=== PATIENT | female | born 1940 | race Two or more races ===

== ENCOUNTER 2024-05-19 07:01 | Inpatient (IN) | payer OTHER ==
[~2024-05-19] VITALS: Ht 152.4 cm; Wt 41.6 kg
--- NOTE | 2024-05-19 07:09 | ED.PDOC ---
Altered Mental Status HPI Comments 88 year old female DAMION presents to the ED with chief complaint of ALOC. EMS reports patient was in back seat of family car getting ready to leave for another family's home when she had decided to lay down, becoming unresponsive for about 20 minutes according to family. EMS relays patient has been A/O x1, but is able to answer their questions when asked. EMS states patient has history of Alzheimer's and Dementia along with a BG of 98 and all vitals stable. Patient unable to answer questions at this time and does not follow instructions. Time Seen by MD: 07:06 Reviewed Notes: Nurses Notes, Administrative Fellow Notes, Medications, Allergies Allergies: Coded Allergies: NO KNOWN ALLERGIES (Unverified , 05/19/24) Home Meds Reported Medications Rosuvastatin Calcium (Rosuvastatin Calcium) 10 Mg Tab, 1 TAB PO HS 05/19/24 Losartan Potassium (Losartan Potassium) 50 Mg Tab, 1 TAB PO BID 05/19/24 Amlodipine Besylate (Amlodipine Besylate) 5 Mg Tab, 1 TAB PO DAILY 05/19/24 Metoprolol Tartrate (Lopressor) 25 Mg Tb, 1 TAB PO DAILY 05/19/24 Alendronate Sodium (Alendronate Sodium) 70 Mg Tab, 1 TAB PO QWEEKLY 05/19/24 Buspirone Hcl (Buspirone Hcl) 5 Mg Tab, 1 TAB PO DAILY 05/19/24 Information Source: Emergency Med Personnel Mode of Arrival: EMS Severity: Moderate, Unresponsive Timing: Hours Duration: Since onset Prehospital treatment: None Quality: Change in Behavior, Confusion Recent: None History of: Dementia Past Medical History PAST MEDICAL HISTORY: Alzheimer, Dementia, High Lipids, HTN Surgical History: Unknown PLACEMENT COORDINATOR History: Unknown Family History Family History: Reviewed,noncontributory to illness Social History Smoker: Non-Smoker Alcohol: Denies ETOH Use Drugs: Denies Drug Use Lives In: Home Constitutional: denies: chills, diaphoresis, fatigue, fever, malaise, sweats, weakness, others EENTM: denies: blurred vision, double vision, ear bleeding, ear discharge, ear drainage, ear pain, ear ringing, eye pain, eye redness, hearing loss, mouth pain, mouth swelling, nasal discharge, nose bleeding, nose congestion, nose pain, photophobia, tearing, throat pain, throat swelling, voice changes, others Respiratory: denies: cough, hemoptysis, orthopnea, SOB at rest, shortness of breath, SOB with excertion, stridor, wheezing, others Cardiovascular: denies: chest pain, dizzy spells, diaphoresis, Dyspnea on exertion, edema, irregular heart beat, left arm pain, lightheadedness, palpitations, PND, syncope, others Gastrointestinal: denies: abdomen distended, abdominal pain, blood streaked bowels, constipated, diarrhea, dysphagia, difficulty swallowing, hematemesis, melena, nausea, poor appetite, poor fluid intake, rectal bleeding, rectal pain, vomiting, others Genitourinary: denies: abnormal vagina bleeding, burning, dyspareunia, dysuria, flank pain, frequency, hematuria, incontinence, pain, , vagina discharge, urgency, others Neurological: denies: dizziness, fainting, headache, left sided numbness, left sided weakness, numbness, paresthesia, pre-existing deficit, right sided numbness, right sided weakness, seizure, speech problems, tingling, tremors, weakness, others Musculoskeletal: denies: back pain, gout, joint pain, joint swelling, muscle pain, muscle stiffness, neck pain, others Integumetry: denies: bruises, change in color, change in hair/nails, dryness, laceration, lesions, lumps, rash, wounds, others Allergic/Immunocompromised: denies: Difficulty Healing, Frequent Infections, Hives, Itching, others Hematologic/Lymphatic: denies: anemia, blood clots, easy bleeding, easy bruising, swollen glands, others Endocrine: denies: excessive hunger, excessive sweating, excessive thirst, excessive urination, flushing, intolerance to cold, intolerance to heat, unexplained weight gain, unexplained weight loss, others Psychiatric: denies: anxiety, bipolar disorder, depression, hopeless, panic disorder, schizophrenia, sleepless, suicidal, others Unable to Obtain due to: Altered Mental Status, Dementia All Other Systems: Reviewed and Negative Physical Exam General Appearance: Moderate Distress, Normal HEENT: Normal ENT Inspection, PERRL/EOMI Neck: Full Range of Motion, Non-Tender, Normal, Normal Inspection Respiratory: Chest Non-Tender, Lungs Clear, No Accessory Muscle Use, No Respiratory Distress, Normal Breath Sounds Cardiovascular: No Edema, No JVD, No Murmur, No Gallop, Normal Peripheral Pulses, Regular Rate/Rhythm Breast Exam: Deferred Gastrointestinal: No Organomegaly, Non Tender, No Pulsatile Mass, Normal Bowel Sounds, Soft Genitalia: Deferred Pelvic: Deferred Rectal: Deferred Extremities: No calf tenderness, Normal capillary refill, Normal inspection, Normal range of motion, Non-tender, No pedal edema Musculoskeletal : Apperance: Normal Neurologic: Disoriented, No Motor Deficits, No Sensory Deficits Cerebellar Function: NOT DONE Reflexes: NOT DONE Skin: Dry, Normal Color, Warm Peripheral Pulses: 3+ Radial (R), 3+ Radial (L) Lymphatic: No Adenopathy Was a procedure done? Was a procedure done?: No Differential Diagnosis (ALOC) Differential Diagnosis: Dehydration, Hypoglycemia, Sepsis X-Ray, Labs, Meds, VS Vital Signs Date Time Temp Pulse Resp B/P (MAP) Pulse Ox O2 Delivery O2 Flow Rate FiO2 05/19/24 09:00 98.4 83 18 128/86 (100) 96 98.4 05/19/24 09:00 83 18 96 Room Air* 0 21 05/19/24 07:15 98.4 68 18 146/70 (95) 99 Lab Test 05/19/24 08:18 Range/Units White Blood Count 5.6 4.4-10.8 10^3/uL Red Blood Count 4.01 4.0-5.20 10^6/uL Hemoglobin 13.6 12.2-16.2 g/dL Hematocrit 39.9 36.0-46.0 % Mean Corpuscular Volume 99.7 80.0-100.0 fL Mean Corpuscular Hemoglobin 34.0 H 28.0-32.0 pg Mean Corpuscular Hemoglobin Concent 34.0 32.0-36.0 g/dL Red Cell Distribution Width 13.5 11.8-14.3 % Platelet Count 243 140-450 10^3/uL Mean Platelet Volume 7.6 6.9-10.8 fL Neutrophils (%) (Auto) 58.1 37.0-80.0 % Lymphocytes (%) (Auto) 31.6 10.0-50.0 % Monocytes (%) (Auto) 8.2 0.0-12.0 % Eosinophils (%) (Auto) 1.1 0.0-7.0 % Basophils (%) (Auto) 1.0 0.0-2.0 % Neutrophils # (Auto) 3.3 1.6-8.6 10 ^3/uL Lymphocytes # (Auto) 1.8 0.4-5.4 10 ^3/uL Monocytes # (Auto) 0.5 0-1.3 10 ^3/uL Eosinophils # (Auto) 0.1 0-0.8 10 ^3/uL Basophils # (Auto) 0.1 0-0.2 10 ^3/uL Nucleated Red Blood Cells 0.3 % Sodium Level 140 136-145 mmol/L Potassium Level 3.8 3.5-5.1 mmol/L Chloride Level 108 H 98-107 mmol/L Carbon Dioxide Level 21 20-31 mmol/L Anion Gap 11 5-15 Blood Urea Nitrogen 11 9-23 mg/dL Creatinine 0.72 0.550-1.02 mg/dL Glomerular Filtration Rate Calc 83 >90 mL/min BUN/Creatinine Ratio 15.3 10.0-20.0 Serum Glucose 129 H 74-106 mg/dL Calcium Level 8.8 8.7-10.4 mg/dL Troponin I High Sensitivity 5 </=34 ng/L Current Medications Medications (Trade) Dose Ordered Sig/Jenn Route Start Time Stop Time Status Last Admin Lorazepam (Ativan Inj) 1 mg ONCE ONCE IV 05/19/24 10:00 05/19/24 10:01 DC 05/19/24 10:38 Patient disoriented. History of dementia. Vitals stable. She is moving her extremities. Unable to cooperate. Possible mild stroke. CT of the head reviewed does not show any acute changes. Possibly will need MRI. Explained to the family that she will need further workup. Continue cardiac monitoring. [facility] approved inpatient admission [id number]. CT Head: FINDINGS: There is no evidence of acute intracranial hemorrhage, extra-axial collection, mass effect, midline shift, herniation or hydrocephalus. There are periventricular and subcortical hypodensities, nonspecific, but likely reflecting sequelae of chronic microvascular ischemic changes. The ventricles, sulci and cisterns are age appropriate. The cordero-white differentiation is intact. The visualized paranasal sinuses and mastoid air cells are clear. No depressed calvarial fracture. 2.0 cm circumscribed lytic lesion the occipital bone. The surrounding soft tissues are unremarkable. IMPRESSION: 1. No evidence of acute intracranial abnormality. Time of 1ST Reevaluation: 08:06 Reevaluation 1ST: Unchanged Patient Education/Counseling: Diagnosis, Treatment Family Education/Counseling: No Family Present Departure 1 Departure Time of Disposition: 07:11 Impression: Primary Impression: Metabolic encephalopathy Additional Impression: TIA (transient ischemic attack) Disposition: 09 ADMITTED INPATIENT Admit to: Med Surg Condition: Guarded Critical Care Note Critical Care Time?: Yes (45 min-critical care time only) Stability Stability form required: No Heart Score Heart Score: Heart Score Response (Comments) Value History Slightly Suspicious 0 EKG Normal 0 Age >65 2 Risk Factors >3 or Hx ASHD 2 Troponin Normal limit 0 Total 4 I personally scribed for SANDOVAL ARCINIEGA MD ([email or web address]) on 05/19/24 at 07:09. Electronically submitted by Jefe Escalante ([email or web address]). I personally scribed for SANDOVAL ARCINIEGA MD ([email or web address]) on 05/19/24 at 08:13. Electronically submitted by Jefe Escalante ([email or web address]). SANDOVAL ARCINIEGA MD May 19, 2024 07:09
--- NOTE | 2024-05-19 08:10 | DVH ---
EXAM: CT HEAD WITHOUT CONTRAST INDICATION: TIA TECHNIQUE: CT of the head without intravenous contrast. Coronal and sagittal reformatted images are submitted. Radiation Dose : 1. Head: CT Dose: CTDI volume is 53.24 mGy. Dose-length product is 853.61 mGy*cm The dose indicators for CT are the volume Computed Tomography (CT) Dose Index (CTDIvol) and the Dose Length Product (DLP), and are measured in units of mGy and mGy-cm, respectively. These indicators are not patient dose, but values generated from the CT scanner acquisition factors. The report includes radiation exposure data for exposures received during this examination. All CT scans at this medical facility are performed using dose modulation techniques as appropriate to a performed exam including the following: Automated exposure control was utilized; adjustment of the MA and/or KV according to patient size; and use of iterative reconstruction technique. COMPARISON: None FINDINGS: There is no evidence of acute intracranial hemorrhage, extra-axial collection, mass effect, midline s hift, herniation or hydrocephalus. There are periventricular and subcortical hypodensities, nonspecific, but likely reflecting sequelae of chronic microvascular ischemic changes. The ventricles, sulci and cisterns are age appropriate. The cordero-white differentiation is intact. The visualized paranasal sinuses and mastoid air cells are clear. No depressed calvarial fracture. 2.0 cm circumscribed lytic lesion the occipital bone. The surroundin g soft tissues are unremarkable. IMPRESSION: 1. No evidence of acute intracranial abnormality.
[2024-05-19 08:30] LABS: Basophils # (auto) 0.1 10 ^3/uL (0-0.2); Eosinophils # (auto) 0.1 10 ^3/uL (0-0.8); Eosinophils % (auto) 1.1 % (0.0-7.0); Hematocrit 39.9 % (36.0-46.0); Hemoglobin 13.6 g/dL (12.2-16.2); Lymphocytes # (auto) 1.8 10 ^3/uL (0.4-5.4); Lymphocytes % (auto) 31.6 % (10.0-50.0); Mean Corpuscular Volume 99.7 fL (80.0-100.0); Monocytes # (auto) 0.5 10 ^3/uL (0-1.3); Monocytes % (auto) 8.2 % (0.0-12.0); Neutrophils # (auto) 3.3 10 ^3/uL (1.6-8.6); Neutrophils % (auto) 58.1 % (37.0-80.0); Nucleated Red Blood Cells % 0.3 %; Platelet Count (auto) 243 10^3/uL (140-450); Red Blood Cells 4.01 10^6/uL (4.0-5.20); Red Cell Distribution Width 13.5 % (11.8-14.3); White Blood Cell 5.6 10^3/uL (4.4-10.8)
[2024-05-19 09:00] VITALS: PULSE 83; RESP 18; O2SAT 96
[2024-05-19 09:22] LABS: Potassium 3.8 mmol/L (3.5-5.1); Sodium 140 mmol/L (136-145)
[2024-05-19 09:23] LABS: Anion Gap 11 (5-15); Calcium 8.8 mg/dL (8.7-10.4); Carbon Dioxide 21 mmol/L (20-31)
[2024-05-19 09:25] LABS: Chloride 108 mmol/L (98-107)
[2024-05-19 09:28] LABS: BUN/Creatinine Ratio 15.3 (10.0-20.0); Blood Urea Nitrogen 11 mg/dL (9-23)
[2024-05-19 09:29] LABS: Glucose 129 mg/dL (74-106)
[2024-05-19] MEDS: LORazepam 2MG/ML-1ML VIAL IV ONE (10:38)
[2024-05-19] MEDS ORDERED: MET25T PO (12:03)
[2024-05-19] MEDS ORDERED: AMLO1TAB22 PO (12:03)
[2024-05-19] MEDS ORDERED: BUSP5TAB51 PO (12:03)
[2024-05-19] MEDS ORDERED: ROSU10TA64 PO (12:03)
[2024-05-19] MEDS ORDERED: ALEN70TA74 PO (12:03)
[2024-05-19] MEDS ORDERED: LOSA-534 PO (12:03)
--- NOTE | 2024-05-19 12:14 | DVHHP2 ---
History of Present Illness Reason for Visit: Syncopal episodoe History of Present Illness Merary Pozo is an 83-year-old female with past medical history of dementia, hypertension, and hyperlipidemia who was brought in by EMS for syncopal episode. The niece states she was and the patient were driving to olive picker her caregiver. Valerie they arrived to olive picker the caregiver the patient was slumped over in the car, the niece states she thought she was sleeping. The niece and caregiver attempted to wake her up and she would not respond, so they called EMS. Once EMS was on the scene the patient did arouse. The niece states that she has never had an episode like this in the past. She states that she is back to her current mental status. The patient is not able to answer any questions and does not follow directions. The niece states she seems to recognize her face, but does not know her name as her normal baseline. Cardiovascular: HTN, hyperipidemia SUSTAINABILITY CONSULTANT: Dementia Past Surgical History: None Family History: None Smoke: No ALCOHOL: none Drugs: None Lives: with Family Review of Systems Constitutional: No: Fever, Chills, Sweats, Weakness, Malaise, Other Eyes: No: Pain, Vision change, Conjunctivae inflammation, Eyelid inflammation, Other, Redness ENT: No: Ear pain, Ear discharge, Nose pain, Nose discharge, Nose congestion, Mouth pain, Mouth swelling, Throat pain, Throat swelling, Other Respiratory: No: Cough, Dry, Shortness of breath, SOB with excertion, Wheezing, Hemoptysis, Pleuritic Pain, Sputum, Wheezing, Other Cardiovascular: No: Chest Pain, Palpitations, Orthopnea, Paroxysmal Noc. Dyspnea, Edema, Lt Headedness, Other Gastrointestinal: No: Nausea, Vomiting, Abdominal Pain, Diarrhea, Constipation, Melena, Hematochezia, Other Genitourinary: No Dysuria, No Frequency, No Incontinence, No Hematuria, No Retention, No Other Musculoskeletal: No: other, neck pain, shoulder pain, arm pain, back pain, hand pain, leg pain, foot pain Skin: No: Rash, Lesions, Jaundice, Bruising, Other Neurological: Other (Syncopal episode ); No: Weakness, Numbness, Incoordination, Change in speech, Confusion, Seizures Allergies: Coded Allergies: NO KNOWN ALLERGIES (Unverified , 05/19/24) Medications Current Medications Medications Dose Ordered Sig/Jenn Route Start Time Stop Time Status Last Admin Dose Admin Sodium Chloride 10 ml Q8HR IV 05/19/24 14:00 UNV Ondansetron HCl 4 mg Q4HP PRN IV 05/19/24 12:15 UNV Docusate Sodium 100 mg BIDPRN PRN PO 05/19/24 12:15 UNV Exam Vital Signs Vital Signs Date Time Temp Pulse Resp B/P (MAP) Pulse Ox O2 Delivery O2 Flow Rate FiO2 05/19/24 09:00 98.4 83 18 128/86 (100) 96 98.4 05/19/24 09:00 Room Air* 0 21 General Appearance: Alert, mild distress, Other HEENT: Atraumatic, PERRLA Respiratory: Clear to auscultation, Normal air movement Cardiovascular: Regular rate, Normal S1, Normal S2 Abdominal: Normal bowel sounds, Soft, No tenderness Extremities: No clubbing, No cyanosis, No edema, Normal pulses Skin: No rashes, No breakdown, No significant lesion Neuro: Normal gait, Normal speech, Strength at 5/5 X4 ext Labs/Xrays Labs Test 05/19/24 08:18 Range/Units White Blood Count 5.6 4.4-10.8 10^3/uL Red Blood Count 4.01 4.0-5.20 10^6/uL Hemoglobin 13.6 12.2-16.2 g/dL Hematocrit 39.9 36.0-46.0 % Mean Corpuscular Volume 99.7 80.0-100.0 fL Mean Corpuscular Hemoglobin 34.0 H 28.0-32.0 pg Mean Corpuscular Hemoglobin Concent 34.0 32.0-36.0 g/dL Red Cell Distribution Width 13.5 11.8-14.3 % Platelet Count 243 140-450 10^3/uL Mean Platelet Volume 7.6 6.9-10.8 fL Neutrophils (%) (Auto) 58.1 37.0-80.0 % Lymphocytes (%) (Auto) 31.6 10.0-50.0 % Monocytes (%) (Auto) 8.2 0.0-12.0 % Eosinophils (%) (Auto) 1.1 0.0-7.0 % Basophils (%) (Auto) 1.0 0.0-2.0 % Neutrophils # (Auto) 3.3 1.6-8.6 10 ^3/uL Lymphocytes # (Auto) 1.8 0.4-5.4 10 ^3/uL Monocytes # (Auto) 0.5 0-1.3 10 ^3/uL Eosinophils # (Auto) 0.1 0-0.8 10 ^3/uL Basophils # (Auto) 0.1 0-0.2 10 ^3/uL Nucleated Red Blood Cells 0.3 % Sodium Level 140 136-145 mmol/L Potassium Level 3.8 3.5-5.1 mmol/L Chloride Level 108 H 98-107 mmol/L Carbon Dioxide Level 21 20-31 mmol/L Anion Gap 11 5-15 Blood Urea Nitrogen 11 9-23 mg/dL Creatinine 0.72 0.550-1.02 mg/dL Glomerular Filtration Rate Calc 83 >90 mL/min BUN/Creatinine Ratio 15.3 10.0-20.0 Serum Glucose 129 H 74-106 mg/dL Calcium Level 8.8 8.7-10.4 mg/dL Troponin I High Sensitivity 5 </=34 ng/L Assessment/Plan Assessment/Plan Assessment: Syncopal episodes, Dementia, Hypertension, Hyperlipidemia, Plan: Admit to Tele, Neurology consult, Continuous cardiac monitoring, Consider MRI of brain, Consider cardiology consult, Home medications reconciled, Plan discussed with: Patient, Other (Niece) My Orders Orders - CYRIL BROWNLEE Procedure Category Date Status Time Admit ADMIT 05/19/24 Transmitted 12:01 Code Status CODE 05/19/24 Transmitted 12:01 2 Gm Sodium Diet DIET 05/19/24 Transmitted Lunch Sodium Chloride Lock PHA 05/19/24 Logged (Saline Lock Ns) 14:00 Ondansetron Hcl PHA 05/19/24 Logged (Zofran) 12:15 Docusate Sodium PHA 05/19/24 Logged Capsule (Colace 12:15 Fall Risk Precautions [facility] 05/19/[address] 12:01 Complete Blood Count LAB 05/20/24 Verified 04:00 Comprehensive LAB 05/20/24 Verified Metabolic Panel 04:00 Condition: Serious [facility] 05/19/24 In Process 12:01 Acetaminophen Tablet PHA 05/19/24 Transmitted (Tylenol Tablet) 12:15 Nitroglycerin PHA 05/19/24 Transmitted Sublingual (Ntrostat 12:15 Morphine Sulfate PHA 05/19/24 Transmitted Injection 12:15 Stat Ekg For Chest [facility] 05/19/24 In Process Pain 12:01 Notify Of Changes [facility] 05/19/24 In Process From Base 12:01 Operations Support Representative For [facility] 05/19/24 In Process 24 Hours 12:01 Emergency Dysrhythmia [facility] 05/19/24 In Process Protocol 12:01 Rhythm Strips Once [facility] 05/19/24 In Process Every Shift 12:01 Oxygen By Nasal RT 05/19/24 Transmitted Cannula 12:01 Amlodipine Tablet [facility] 05/20/24 Verified (Norvasc Tablet) 10:00 Losartan Tablet PHA 05/19/24 Verified (Cozaar Tablet) 22:00 Metoprolol Tartrate [facility] 05/20/24 Verified Tablet (Lopressor Ta 10:00 (Nf) Buspirone Hcl PHA 05/20/24 Verified 10:00 (Nf) Rosuvastatin PHA 05/19/24 Verified Calcium 22:00 Date of Service: May 19, 2024 Billing Provider: CYRIL BROWNLEE Common Visit Codes: [id number] INP/OBS CARE (MOD) CYRIL BROWNLEE May 19, 2024 12:14
[2024-05-19] MEDS ORDERED: DOCUSATE SOD 100 MG CAP PO PRN (12:15)
[2024-05-19] MEDS ORDERED: MORPHINE SULFATE INJ 2 MG/ml SYRG IV PRN (12:15)
[2024-05-19] MEDS ORDERED: NITROGLYCERIN 0.4 MG SL TAB SL PRN (12:15)
[2024-05-19] MEDS ORDERED: ONDANSETRON HCL 4 MG/2 ML VIAL IV PRN (12:15)
[2024-05-19] MEDS ORDERED: ACETAMINOPHEN 325 MG TAB PO PRN (12:15)
[2024-05-19] MEDS ORDERED: HALOPERIDOL LACTATE 5 MG/ML INJ VIAL IM ONE (12:45)
[2024-05-19] MEDS: HALOPERIDOL LACTATE 5 MG/ML INJ VIAL ONE (12:52)
[2024-05-19] MEDS: SODIUM CHLOR 0.9% PF (SALINE LOCK) 10ML VIAL/SYR IV SCH (14:21)
[2024-05-19] MEDS: OLANZapine 5 MG TAB PO ONE (14:44)
[2024-05-19 18:21] VITALS: BP 147/72; PULSE 116; RESP 18; TEMP 98.3; O2SAT 99
[2024-05-19 19:00] VITALS: PULSE 87; RESP 18; O2SAT 97
[2024-05-19] MEDS: AMIODARONE BOLUS KIT 100 ML IV ONE (19:21)
[2024-05-19] MEDS: AMIODARONE 450mg/250ml AE 250 ML IV SCH (19:40)
[2024-05-19 20:00] VITALS: PULSE 83; PULSE 86; RESP 18; O2SAT 97
--- NOTE | 2024-05-19 20:31 | DVHINCON2 ---
Date of service: May 19, [address] Cobian Reason for Consultation Syncopal episodes History of Present Illness Ms. Pozo is 83 years old female with a history of hypertension, dyslipidemia, Alzheimer disease, the patient was came to the hospital on 05/19/2024 with a chief company of altered mental status, at this time, she was awake, she vocalizes, but not able to answer question or understand her surroundings, no family available for the history, the information obtained from chart review and talking to her nurse Apparently, the patient, when she was in back sitter with her family ready to leave for another family's home, she become nonresponsive for about 20 minutes. She was history of dementia, but no details history is available [phone] no answer CBC, 05/19/2024: Unremarkable BMP, 05/19/2024: Unremarkable CT head, 05/19/2024: No evidence of acute intracranial abnormality Past Medical History Hypertension, dyslipidemia, Alzheimer disease Past Surgical History Unknown Family History Unknown Social History Smoker: Non-Smoker Alcohol: Denies ETOH Use Drugs: Denies Drug Use Lives In: Home Allergies: Coded Allergies: NO KNOWN ALLERGIES (Unverified , 05/19/24) Home Meds Reported Medications Rosuvastatin Calcium (Rosuvastatin Calcium) 10 Mg Tab, 1 TAB PO HS 05/19/24 Losartan Potassium (Losartan Potassium) 50 Mg Tab, 1 TAB PO BID 05/19/24 Amlodipine Besylate (Amlodipine Besylate) 5 Mg Tab, 1 TAB PO DAILY 05/19/24 Metoprolol Tartrate (Lopressor) 25 Mg Tb, 1 TAB PO DAILY 05/19/24 Alendronate Sodium (Alendronate Sodium) 70 Mg Tab, 1 TAB PO QWEEKLY 05/19/24 Buspirone Hcl (Buspirone Hcl) 5 Mg Tab, 1 TAB PO DAILY 05/19/24 Current Medications Current Medications Medications (Trade) Dose Ordered Sig/Jenn Route PRN Reason Start Time Stop Time Status Last Admin Sodium Chloride (Saline Lock Ns) 10 ml Q8HR IV 05/19/24 14:00 05/19/24 14:21 Ondansetron HCl (Zofran) 4 mg Q4HP PRN IV NAUSEA / VOMITING 05/19/24 12:15 Docusate Sodium (Colace Capsule) 100 mg BIDPRN PRN PO FOR CONSTIPATION 05/19/24 12:15 Acetaminophen (Tylenol Tablet) 650 mg Q6HP PRN PO PAIN SCALE 1-3 OR TEMP>100.4 05/19/24 12:15 Nitroglycerin (Ntrostat Sublingual) 0.4 mg Q5MINP PRN SL FOR CHEST PAIN 05/19/24 12:15 Morphine Sulfate 2 mg Q30M PRN IV FOR CHEST PAIN 05/19/24 12:15 Amlodipine Besylate (Norvasc Tablet) 5 mg DAILY PO 05/20/24 10:00 Losartan Potassium (Cozaar Tablet) 50 mg BID PO 05/19/24 22:00 Metoprolol Tartrate (Lopressor Tablet) 25 mg DAILY PO 05/20/24 10:00 Buspirone HCl (Buspar Tablet) 5 mg DAILY PO 05/20/24 10:00 Atorvastatin Calcium (Lipitor) 20 mg HS PO 05/19/24 22:00 Olanzapine (ZyPREXA Tablet) 5 mg DAILY PO 05/20/24 10:00 Amiodarone HCl 250 ml @ 33.333 mls/ hr Q7H30M IV 05/19/24 18:00 05/19/24 23:59 05/19/24 19:40 Amiodarone HCl 250 ml @ 16.667 mls/ hr Q15H IV 05/20/24 00:00 Review of Systems Unobtainable Vital Signs Vital Signs Date Time Temp Pulse Resp B/P (MAP) Pulse Ox O2 Delivery O2 Flow Rate FiO2 05/19/24 18:21 98.3 116 18 147/72 (97) 99 98.3 05/19/24 09:00 Room Air* 0 21 Physical Exam GENERAL EXAM: General: the patient is well developed and nourished. No acute distress. HEENT: Normocephalic, neck is supple, no carotid bruits. No mass RESPIRATORY: Normal respiratory effort with symmetrical lung expansion. Lungs clear to auscultation. CARDIOVASCULAR: Regular rate and rhythm with no murmurs. S1, S2. ABDOMEN: Soft, nontender, normal bowel sound NEUROLOGICAL: MENTAL STATUS: Awake and alert. She may only oriented to herself SPEECH, LANGUAGE, HIGHER CORTICAL FUNCTION: She vocalizes, she does not understand or given history CRANIAL NERVES: #2: Intact visual love to confrontation. #3,4,6: Pupils are equal, round and reactive. EOMs full and conjugate. #5: Facial sensation intact in all three divisions bilaterally. Mandibular strength intact. #7: Facial muscles symmetrical and strength intact. #8: Hearing grossly normal to voice. #9,10: Deferred #11: Trapezius and sternomastoid strength intact bilaterally. #12: Deferred SENSATION: Sensation to touch and pinprick is okay MOTOR: Normal tone in the upper and lower extremity. Normal muscle bulk. No fasciculations. No abnormal movements or posturing. The muscle strength feels normal in the arms, she moves the legs REFLEXES: Deep tendon reflexes normal and symmetrical. No pathological reflexes. CEREBELLAR/COORDINATION: Deferred GAIT/STATION: deferred. Labs/Diagnostic Data Labs Test 05/19/24 08:18 Range/Units White Blood Count 5.6 4.4-10.8 10^3/uL Red Blood Count 4.01 4.0-5.20 10^6/uL Hemoglobin 13.6 12.2-16.2 g/dL Hematocrit 39.9 36.0-46.0 % Mean Corpuscular Volume 99.7 80.0-100.0 fL Mean Corpuscular Hemoglobin 34.0 H 28.0-32.0 pg Mean Corpuscular Hemoglobin Concent 34.0 32.0-36.0 g/dL Red Cell Distribution Width 13.5 11.8-14.3 % Platelet Count 243 140-450 10^3/uL Mean Platelet Volume 7.6 6.9-10.8 fL Neutrophils (%) (Auto) 58.1 37.0-80.0 % Lymphocytes (%) (Auto) 31.6 10.0-50.0 % Monocytes (%) (Auto) 8.2 0.0-12.0 % Eosinophils (%) (Auto) 1.1 0.0-7.0 % Basophils (%) (Auto) 1.0 0.0-2.0 % Neutrophils # (Auto) 3.3 1.6-8.6 10 ^3/uL Lymphocytes # (Auto) 1.8 0.4-5.4 10 ^3/uL Monocytes # (Auto) 0.5 0-1.3 10 ^3/uL Eosinophils # (Auto) 0.1 0-0.8 10 ^3/uL Basophils # (Auto) 0.1 0-0.2 10 ^3/uL Nucleated Red Blood Cells 0.3 % Sodium Level 140 136-145 mmol/L Potassium Level 3.8 3.5-5.1 mmol/L Chloride Level 108 H 98-107 mmol/L Carbon Dioxide Level 21 20-31 mmol/L Anion Gap 11 5-15 Blood Urea Nitrogen 11 9-23 mg/dL Creatinine 0.72 0.550-1.02 mg/dL Glomerular Filtration Rate Calc 83 >90 mL/min BUN/Creatinine Ratio 15.3 10.0-20.0 Serum Glucose 129 H 74-106 mg/dL Calcium Level 8.8 8.7-10.4 mg/dL Troponin I High Sensitivity 5 </=34 ng/L Assessment Spells of mental status changes ? TIA ? Partial complex seizure ? Syncope secondary to arrhythmia Dementia Plan/Recommendation Monitoring Supportive treatment Telemetry Vitamin B12, folic acid, TSH EEG MRI head Up to chair Physical therapy More recommendation per clinical course Follow up her doctors on discharge Prognosis: Poor This medical document was created using an electronic medical record system with [employer] computerized dictation system. Although this document has been carefully reviewed, there may still be some phonetic and typographical errors. These areas are purely typographical due to imperfections of the software programs, and do not reflect any compromise in the patient's medical care. Plan discussed with: Other MARCELINO LAKE MD May 19, 2024 20:30
[2024-05-19 21:00] VITALS: BP 142/65; PULSE 100; RESP 20; TEMP 98.2; O2SAT 97
[2024-05-19] MEDS ORDERED: LORazepam 2MG/ML-1ML VIAL IV PRN (21:30)
[2024-05-19] MEDS: LOSARTAN POTASSIUM 50 MG TAB PO SCH (21:47)
[2024-05-19] MEDS: ATORVASTATIN 20 MG TAB PO SCH (21:48)
[2024-05-19] MEDS: HALOPERIDOL LACTATE 5 MG/ML INJ VIAL IM PRN (23:00)
[2024-05-20] VITALS (7 sets, daily range): BP systolic 101–151; BP diastolic 42–69; PULSE 83–115; RESP 19–20; TEMP 98.2–98.9; O2SAT 96–99
[2024-05-20] MEDS: AMIODARONE 450mg/250ml AE 250 ML IV SCH (01:08)
[2024-05-20 07:07] LABS: Basophils # (auto) 0 10 ^3/uL (0-0.2); Basophils % (auto) 0.4 % (0.0-2.0); Eosinophils # (auto) 0 10 ^3/uL (0-0.8); Eosinophils % (auto) 0.2 % (0.0-7.0); Hematocrit 39.6 % (36.0-46.0); Hemoglobin 13.4 g/dL (12.2-16.2); Lymphocytes # (auto) 0.8 10 ^3/uL (0.4-5.4); Lymphocytes % (auto) 10.7 % (10.0-50.0); Mean Corpuscular Hemoglobin 33.5 pg (28.0-32.0); Mean Corpuscular Hgb Conc. 33.8 g/dL (32.0-36.0); Monocytes # (auto) 0.6 10 ^3/uL (0-1.3); Monocytes % (auto) 8.3 % (0.0-12.0); Neutrophils # (auto) 6.1 10 ^3/uL (1.6-8.6); Neutrophils % (auto) 80.4 % (37.0-80.0); Platelet Count (auto) 213 10^3/uL (140-450); Red Cell Distribution Width 13.6 % (11.8-14.3); White Blood Cell 7.6 10^3/uL (4.4-10.8)
[2024-05-20 07:26] LABS: Alanine Aminotransferase 19 U/L (7-40); Albumin 4.4 g/dL (3.2-4.8); Alkaline Phosphatase 75 U/L (46-116); Anion Gap 14 (5-15); Aspartate Aminotransferase 32 U/L (13-40); BUN/Creatinine Ratio 12.7 (10.0-20.0); Blood Urea Nitrogen 10 mg/dL (9-23); Carbon Dioxide 22 mmol/L (20-31); Chloride 106 mmol/L (98-107); Glucose 104 mg/dL (74-106); Sodium 142 mmol/L (136-145)
[2024-05-20 07:27] LABS: Bilirubin, Total 0.7 mg/dL (0.2-1.0); Free T4 (Free Thyroxine) 1.19 ng/dL (0.89-1.76); Total Protein 7.1 g/dL (5.7-8.2)
[2024-05-20 07:53] LABS: Folate (Folic Acid) 41.18 ng/mL (>5.38)
[2024-05-20 07:54] LABS: Calcium 10.5 mg/dL (8.7-10.4); Potassium 3.3 mmol/L (3.5-5.1)
[2024-05-20] MEDS ORDERED: amLODIPine BESYLATE 5 MG TAB PO SCH (10:00)
[2024-05-20] MEDS ORDERED: METOPROLOL TARTRATE 25 MG TAB PO SCH (10:00)
--- NOTE | 2024-05-20 10:38 | DVHINCON2 ---
Date Seen: May 20, 2024 Referring Physician JAIRO Cobian Reason for Consultation A-fib History of Present Illness This is an 83-year-old female who presented to the emergency room via EMS with a chief complaint of syncopal events. At time of assessment, the patient was alert but confused speaking on her standing rock language (Tagalog). There was no family at bedside. Information obtained from records which indicate the patient presented with complaints of possible syncopal events for approximately 20 minutes and worsening ALOC given her history of Alzheimer's dementia. Upon EMS arrival the patient was found arousable to stimulation. Per family, this is not the patient's baseline. En route to the hospital she underwent a 12 lead electrocardiogram revealing a normal sinus rhythm. Upon arrival to the emergency room she underwent a subsequent 12 lead electrocardiogram revealing an atrial fibrillation rhythm with rapid ventricular rate in the 140s bpm for which she was placed on an amiodarone drip which continues to be instituted at this time. Baseline troponin level is negative. Significant medical history includes hypertension, dyslipidemia, osteoporosis, and Alzheimer's dementia. Past Medical History Past medical history reviewed. No other significant than mentioned above. Past Surgical History Unknown past surgical history. Family History: Patient reports no known family medical history. Family History Unknown family history. Social History Unknown social history. Allergies: Coded Allergies: NO KNOWN ALLERGIES (Unverified , 05/19/24) Home Meds Reported Medications Rosuvastatin Calcium (Rosuvastatin Calcium) 10 Mg Tab, 1 TAB PO HS 05/19/24 Losartan Potassium (Losartan Potassium) 50 Mg Tab, 1 TAB PO BID 05/19/24 Amlodipine Besylate (Amlodipine Besylate) 5 Mg Tab, 1 TAB PO DAILY 05/19/24 Metoprolol Tartrate (Lopressor) 25 Mg Tb, 1 TAB PO DAILY 05/19/24 Alendronate Sodium (Alendronate Sodium) 70 Mg Tab, 1 TAB PO QWEEKLY 05/19/24 Buspirone Hcl (Buspirone Hcl) 5 Mg Tab, 1 TAB PO DAILY 05/19/24 Home Meds Home medications reviewed. Current Medications Current Medications Medications (Trade) Dose Ordered Sig/Jenn Route PRN Reason Start Time Stop Time Status Last Admin Sodium Chloride (Saline Lock Ns) 10 ml Q8HR IV 05/19/24 14:00 05/20/24 05:07 Ondansetron HCl (Zofran) 4 mg Q4HP PRN IV NAUSEA / VOMITING 05/19/24 12:15 Docusate Sodium (Colace Capsule) 100 mg BIDPRN PRN PO FOR CONSTIPATION 05/19/24 12:15 Acetaminophen (Tylenol Tablet) 650 mg Q6HP PRN PO PAIN SCALE 1-3 OR TEMP>100.4 05/19/24 12:15 Nitroglycerin (Ntrostat Sublingual) 0.4 mg Q5MINP PRN SL FOR CHEST PAIN 05/19/24 12:15 Morphine Sulfate 2 mg Q30M PRN IV FOR CHEST PAIN 05/19/24 12:15 Amlodipine Besylate (Norvasc Tablet) 5 mg DAILY PO 05/20/24 10:00 Losartan Potassium (Cozaar Tablet) 50 mg BID PO 05/19/24 22:00 Metoprolol Tartrate (Lopressor Tablet) 25 mg DAILY PO 05/20/24 10:00 Buspirone HCl (Buspar Tablet) 5 mg DAILY PO 05/20/24 10:00 Atorvastatin Calcium (Lipitor) 20 mg HS PO 05/19/24 22:00 Olanzapine (ZyPREXA Tablet) 5 mg DAILY PO 05/20/24 10:00 Amiodarone HCl 250 ml @ 33.333 mls/ hr Q7H30M IV 05/19/24 18:00 05/19/24 23:59 DC 05/19/24 19:40 Amiodarone HCl 250 ml @ 16.667 mls/ hr Q15H IV 05/20/24 00:00 05/20/24 01:08 Lorazepam (Ativan Inj) 1 mg ONCE PRN IV MRI 05/19/24 21:30 Haloperidol Lactate (Haldol) 2.5 mg Q8HP PRN IM AGITATION 05/19/24 21:30 05/19/24 23:00 Review of Systems Constitutional: No symptom reported Ears, Nose, & Throat: No symptom reported Eyes: No symptom reported Neurological: Syncopal events, worsening mentation Pulmonary/Respiratory: No symptom reported Cardiovascular: No symptom reported Gastrointestinal: No symptom reported Genitourinary: No symptom reported Musculoskeletal: No symptom reported Skin: No symptom reported Psychiatric: No symptom reported Endocrine: No symptom reported Hemotologic/Lymphatic: No symptom reported Vital Signs Vital Signs Date Time Temp Pulse Resp B/P (MAP) Pulse Ox O2 Delivery O2 Flow Rate FiO2 05/20/24 09:01 98.9 98 20 144/54 (84) 96 98.9 05/19/24 20:00 Room Air* 0 21 Physical Exam General Appearance: ALOC. Confused. Mittens on. Elder Head Exam: Normal inspection Neck Exam: Normal inspection. Non-tender. Normal alignment Pulmonary/Respiratory: Chest non-tender. Diminished bilateral breath sounds Cardiovascular/Chest: Irregularly irregular rate and rhythm. AFib, uncontrolled rate. No murmurs. No JVD. Peripheral Pulses: 2+ Radial (R). 2+ Radial (L). 2+ Pedal (R). 2+ Pedal (L) Abdominal Exam: Normal bowel sounds. Soft. Nontender. No hepatospenomegaly. No masses Ankle Exam: Negative ankle edema Lower extremities: Negative lower extremity edema Neuro/Mental Status: ALOC, confused Thoughts/Psych: Somewhat agitated Appearance: In no acute distress Skin Exam: Normal inspection. Normal color. Warm. Dry Labs/Diagnostic Data Labs Test 05/20/24 06:21 05/19/24 08:18 Range/Units White Blood Count 7.6 # 4.4-10.8 10^3/uL Red Blood Count 4.00 4.0-5.20 10^6/uL Hemoglobin 13.4 12.2-16.2 g/dL Hematocrit 39.6 36.0-46.0 % Mean Corpuscular Volume 99.0 80.0-100.0 fL Mean Corpuscular Hemoglobin 33.5 H 28.0-32.0 pg Mean Corpuscular Hemoglobin Concent 33.8 32.0-36.0 g/dL Red Cell Distribution Width 13.6 11.8-14.3 % Platelet Count 213 140-450 10^3/uL Mean Platelet Volume 7.6 6.9-10.8 fL Neutrophils (%) (Auto) 80.4 H 37.0-80.0 % Lymphocytes (%) (Auto) 10.7 10.0-50.0 % Monocytes (%) (Auto) 8.3 0.0-12.0 % Eosinophils (%) (Auto) 0.2 0.0-7.0 % Basophils (%) (Auto) 0.4 0.0-2.0 % Neutrophils # (Auto) 6.1 1.6-8.6 10 ^3/uL Lymphocytes # (Auto) 0.8 0.4-5.4 10 ^3/uL Monocytes # (Auto) 0.6 0-1.3 10 ^3/uL Eosinophils # (Auto) 0 0-0.8 10 ^3/uL Basophils # (Auto) 0 0-0.2 10 ^3/uL Nucleated Red Blood Cells 0.0 % Sodium Level 142 136-145 mmol/L Potassium Level 3.3 L 3.5-5.1 mmol/L Chloride Level 106 98-107 mmol/L Carbon Dioxide Level 22 20-31 mmol/L Anion Gap 14 5-15 Blood Urea Nitrogen 10 9-23 mg/dL Creatinine 0.79 0.550-1.02 mg/dL Glomerular Filtration Rate Calc 75 >90 mL/min BUN/Creatinine Ratio 12.7 10.0-20.0 Serum Glucose 104 74-106 mg/dL Calcium Level 10.5 H 8.7-10.4 mg/dL Total Bilirubin 0.7 0.2-1.0 mg/dL Aspartate Amino Transferase (AST) 32 13-40 U/L Alanine Aminotransferase (ALT) 19 7-40 U/L Alkaline Phosphatase 75 46-116 U/L Total Protein 7.1 5.7-8.2 g/dL Albumin 4.4 3.2-4.8 g/dL Vitamin B12 Level 651 211-911 pg/mL Folic Acid 41.18 >5.38 ng/mL Thyroid Stimulating Hormone (TSH) 2.44 0.55-4.78 uIU/mL Free Thyroxine (T4) Calculated 1.19 0.89-1.76 ng/dL Troponin I High Sensitivity 5 </=34 ng/L Assessment Atrial fibrillation with rapid ventricular rate, new onset Rule out structural heart disease Questionable syncopal events Hypertension Dyslipidemia Alzheimer's dementia Rule out UTI Plan/Recommendation (Dr. Simental) The patient with newly diagnosed atrial fibrillation with RVR we will undergo a transthoracic echocardiogram to rule out structural heart disease. In the meantime, initiate metoprolol XL for rate control, continue amiodarone drip per pharmacy protocol, therapeutic Lovenox ([id number] Score 4, HAS-BLED 1. Transition to low-dose Eliquis when appropriate), and replete electrolytes as necessary K>4 and Mg>2. Given complains of possible syncopal events, the patient will undergo a bilateral carotid duplex to rule out carotid artery st enosis. Obtain baseline CXR and UACOM. Continue Neurology recommendations. Monitor ECG changes and notify. Thank you for allowing us to participate in this patient's care. Please call if you have any questions or concerns. This medical document was created using an electronic medical record system with voice recognition software and computerized dictation system. Although this document has been carefully reviewed, there might still be some phonetic and typographical errors. Occasional wrong-word or ``sound-alike substitutions may have occurred due to the inherent limitations of voice recognition software. These areas are purely typographical due to imperfections of the software programs and do not reflect any compromise in the patient's medical care. Please read the chart carefully and recognize, using context, where these substitutions have occurred. Plan discussed with: Other Date of Service: May 20, 2024 Billing Provider: FLAKO SIMENTAL MD Cardiology Common Codes: 23733-PTLXHTC INP/OBS CARE (High) GARRETT SAMPSON FUEL VERIFICATION TECHNICIAN May 20, 2024 10:38
--- NOTE | 2024-05-20 10:38 | DVHPN2 ---
Subjective Continue to be confused; nursing staff helped with translation Reviewed: Care Plan, H&P, Labs, Medications, Previous Orders, Radiology, Other (Consultations) Changes from previous H/P or p: No Changes Objective Vitals Vital Signs Date Time Temp Pulse Resp B/P (MAP) Pulse Ox O2 Delivery O2 Flow Rate FiO2 05/20/24 09:01 98.9 98 20 144/54 (84) 96 98.9 05/19/24 20:00 Room Air* 0 21 Intake/Output Intake and Output 05/20/24 07:00 Intake Total 500 ml Output Total 1550 ml Balance -1050 ml Intake Oral 150 ml IV Total 350 ml Output Urine Total 1550 ml General Appearance: Other (Confused; cachectic) HEENT: Other (There are bruises on face) Lungs: Clear to auscultation, Normal air movement Cardiovascular: Other (Irregularly irregular) Abdomen: Normal bowel sounds, Soft, No tenderness Neuro: Other (Confused; did not respond to questions; as per nurse she can speak ) Psych/Mental Status: Other (Confused) Medications Current Medications Medications Dose Ordered Sig/Jenn Route Start Time Stop Time Status Last Admin Dose Admin Sodium Chloride 10 ml Q8HR IV 05/19/24 14:00 05/20/24 05:07 10 ML Ondansetron HCl 4 mg Q4HP PRN IV 05/19/24 12:15 Docusate Sodium 100 mg BIDPRN PRN PO 05/19/24 12:15 Acetaminophen 650 mg Q6HP PRN PO 05/19/24 12:15 Nitroglycerin 0.4 mg Q5MINP PRN SL 05/19/24 12:15 Morphine Sulfate 2 mg Q30M PRN IV 05/19/24 12:15 Amlodipine Besylate 5 mg DAILY PO 05/20/24 10:00 Losartan Potassium 50 mg BID PO 05/19/24 22:00 Metoprolol Tartrate 25 mg DAILY PO 05/20/24 10:00 Buspirone HCl 5 mg DAILY PO 05/20/24 10:00 Atorvastatin Calcium 20 mg HS PO 05/19/24 22:00 Olanzapine 5 mg DAILY PO 05/20/24 10:00 Amiodarone HCl 250 ml @ 16.667 mls/ hr Q15H IV 05/20/24 00:00 05/20/24 01:08 16.667 MLS/HR Lorazepam 1 mg ONCE PRN IV 05/19/24 21:30 Haloperidol Lactate 2.5 mg Q8HP PRN IM 05/19/24 21:30 05/19/24 23:00 2.5 MG Laboratory Results Laboratory Tests 05/20/24 06:21 Chemistry Test 05/20/24 06:21 Albumin 4.4 g/dL (3.2-4.8) Calcium Level 10.5 mg/dL (8.7-10.4) H Total Protein 7.1 g/dL (5.7-8.2) LFT Test 05/20/24 06:21 Alanine Aminotransferase (ALT) 19 U/L (7-40) Alkaline Phosphatase 75 U/L (46-116) Aspartate Amino Transferase (AST) 32 U/L (13-40) Total Bilirubin 0.7 mg/dL (0.2-1.0) HgA1c, TSH Test 05/20/24 06:21 Thyroid Stimulating Hormone (TSH) 2.44 uIU/mL (0.55-4.78) Labs and/or images reviewed: Labs reviewed by me, Image(s) reviewed by me Assessment/Plan Assessment/Plan An 83-year-old female patient with multiple comorbidities who presented to emergency department with altered mental status. #Acute metabolic/toxic encephalopathy in the setting of dementia; reviewed head CT and carotid arteries duplex ultrasound; neurology is following; fall and seizures precautions; differential diagnosis include TIA, partial complex seizures, syncope episodes secondary to arrhythmias; cardiology is following; one-to-one sitter; continue close monitoring #Facial bruises most likely secondary to fall; reviewed head CT; fall and seizures precautions; continue close monitoring #Dementia; suspected Alzheimer disease; oriented to self at baseline; neurology is following; continue close monitoring as above #New onset atrial fibrillation with rapid ventricular response; continue amiodarone infusion; continue anticoagulation with enoxaparin; telemetry; cardiology is following; reviewed echocardiogram; continue close monitoring #LINNEA; most likely vasomotor nephropathy; avoid nephrotoxic agents; continue close monitoring #Hypokalemia; most likely due to decreased oral intake; replace electrolytes as indicated; continue close monitoring #Hypertensive heart disease with diastolic heart failure; not in exacerbation; reviewed echocardiogram; cardiology is following; continue antihypertensive medications as indicated; continue close monitoring #Dyslipidemia; continue home statin; continue monitoring #Severe malnutrition; dietary consulted; continue monitoring The patient will be transferred to [facility] when bed [facility] available. Goals of care discussion for 20 minutes; full code. 66 minutes of critical care time. Late Entry. This medical document was created using an electronic medical record system with computerized dictation system. Although this document has been carefully reviewed, there might still be some phonetic and typographical errors. These areas are purely typographical due to imperfections of the software programs, and do not reflect any compromise in the patient's medical care. Plan discussed with: Other (Nurse; caregivers) My Orders Orders - CHONG GARCIA MD Procedure Category Date Status Time * Manager Membership CONS 05/20/24 Transmitted Consult Date of Service: May 20, 2024 Billing Provider: CHONG GARCIA MD Common Visit Codes: 27888-[id number] CARE 30-74 MIN (66 minutes) Secondary Visit Codes: 46936-RYIOHROP CARE PLAN 30 MINUTES (20 minutes) CHONG GARCIA MD May 20, 2024 10:38
[2024-05-20] MEDS: POTASSIUM CHLORIDE 40 MEQ, LIDOCAINE 1% (LOCAL ANESTH.) 4 ML in SODIUM CHL 0.9% 250 ML IV ONE (10:45)
--- NOTE | 2024-05-20 11:38 | DVH ---
CAROTID ARTERIAL DOPPLER CLINICAL HISTORY: Syncope TECHNIQUE: Doppler study of bilateral carotid/vertebral arteries were performed. Comparison: None FINDINGS: There are atherosclerotic plaques in the bilateral carotid bulbs , [id number]. There is elevated peak systolic velocity in the proximal left internal carotid artery measuring 180 centimeter s/second. The bilateral common carotid, external and right internal carotid arteries appear patent wi thout hemodynamically significant stenosis. Antegrade flow is present within the vertebral arteries with appropriate velocities and waveforms. Right ICA/CCA PSV ratio = 0.8. Left ICA/CCA PSV ratio = 2.5 . IMPRESSION: 1. There is flow-limiting stenosis in the proximal left internal carotid artery in the range of 50-69 %. Further evaluation with CT angiography is recommended. HS:Y
[2024-05-20] MEDS: OLANZapine 5 MG TAB PO SCH (11:39)
[2024-05-20] MEDS: ENOXAPARIN SOD 100 MG/1 ML SYRINGE SC ONE (11:39)
[2024-05-20] MEDS: POTASSIUM EFFERVESENT TAB 25 MEQ PO ONE (11:40)
[2024-05-20] MEDS: busPIRone HCL 10 MG TAB PO SCH (11:45)
[2024-05-20] MEDS ORDERED: HYALURONIDASE 150 UNIT/1 ML SUBCUT ONE (12:45)
[2024-05-20] MEDS: MAGNESIUM SULFATE 1GM/100ML 100 ML IV ONE (13:57)
--- NOTE | 2024-05-20 15:28 | DVH ---
EXAM: XY CHEST PORTABLE Indication: A-fib Technique: Single frontal view of the chest was obtained Comparison: None FINDINGS: Lines and Tubes: None Lungs: No focal consolidation. Mild interstitial opacities suggestive of atelectasis or mild pulmonar y edema. Pleura: No effusion. No pneumothorax. Cardiomediastinal contours: Cardiomegaly. Atherosclerotic vascular calcifications of the thoracic aor ta are noted. Bones: No acute osseous abnormality. IMPRESSION: Cardiomegaly. Mild interstitial opacities suggestive of atelectasis or mild pulmonary edema.
--- NOTE | 2024-05-20 16:26 | DVHSR ---
APPROVED REPORT EXAM: Two-dimensional and M-mode echocardiogram with Doppler and color Doppler. Blood Pressure: 144/54 mmHg INDICATION New onset AFIB RISK FACTORS Height: 60, Weight: 91 DIMENSIONS LVDd3.5 (3.8-5.7cm)LA (2D) (1.9-4.0cm)Aortic Root (2.0-3.7cm) LVDs2.2 (2.5-4.0cm)LA (MM) (1.9-4.0cm)Aortic Cusp Exc (1.5-2.0cm) EF (%) 67.0 (55-70%)Rt. Atrium (1.9-4.0cm)Asc. Aorta cm IVSd0.9 (0.7-1.1cm)RV (D) (1.8-2.4cm) PWd1.0 (0.7-1.1cm) Mitral Valve MitralMitral Stenosis E wave0.83m/sMV Mean GR.mmHg A wave1.11m/sMV Peak GR.81mmHg E/A ratio0.72D MVAcm2 DECEL [id number] 1/2 Besn36ul IVRTmsDop MVA4.93cm2 Aortic Valve Aortic ValveAortic Stenosis V11.36m/Viraj Mean GR.4mmHg V21.43m/Viraj Peak GR.8mmHg AI P 1/2 Xyuu362.98ms Tricuspid Valve TR Velocity2.58m/s [id number] Other Information Technically limited study due to body habitus, patient position. Patient moved entire study and kept throwing arms around. SOCIAL WORKER was having to hold patient down for study. Conclusion Technically difficult study due to patient body habitus. Overall preserved left ventricular systolic function estimated ejection fraction is 60%. There is a grade diastolic dysfunction. Normal right ventricular size and dimension. Normal right ventricular systolic function. Slightly i ncreased right ventricular systolic pressure 30 mm of mercury. The aortic valve is thickened and sclerotic there is mild aortic valve regurgitation. There is mild mitral valve regurgitation. There is mild tricuspid valve regurgitation. The pulmonary valve is grossly normal. No pericardial effusion. New
--- NOTE | 2024-05-20 19:40 | DVHPN2 ---
Progress Note - Dictate Date Seen: May 20, 2024 Medical Necessity Reason Pt with a Central, PICC or Fol: Yes The following are medically ne: Garcia Catheter Subjective Ms. Pozo is 83 years old female with a history of hypertension, dyslipidemia, Alzheimer disease, the patient was came to the hospital on 05/19/2024 with a chief company of altered mental status, I have seen and examined the patient, I have discussed with her nurse and other medical staff, with still do not have good history She was awake, socially appropriate, but she may only oriented to person/herself only, she speaks Tagalog No family available for the history [phone] no answer CBC, 05/19/2024: Unremarkable BMP, 05/19/2024: Unremarkable Vitamin B12, 05/20/2024: 651 Folic acid, 05/2024: 41.18 He was H, 05/2024: 2.44 CT head, 05/19/2024: No evidence of acute intracranial abnormality vital signs Vital Sign Date Time Temp Pulse Resp B/P (MAP) Pulse Ox O2 Delivery O2 Flow Rate FiO2 05/20/24 17:00 98.2 83 20 151/64 (93) 97 98.2 05/20/24 08:00 Room Air* 0 21 Total Intake and Output 05/19/24 05/19/24 05/20/24 15:00 23:00 07:00 Intake Total 100 ml 400 ml Output Total 1550 ml Balance 100 ml -1150 ml medications Current Medications Medications Dose Ordered Sig/Jenn Route Start Time Stop Time Status Last Admin Dose Admin Sodium Chloride 10 ml Q8HR IV 05/19/24 14:00 05/20/24 16:52 10 ML Ondansetron HCl 4 mg Q4HP PRN IV 05/19/24 12:15 Docusate Sodium 100 mg BIDPRN PRN PO 05/19/24 12:15 Acetaminophen 650 mg Q6HP PRN PO 05/19/24 12:15 Nitroglycerin 0.4 mg Q5MINP PRN SL 05/19/24 12:15 Morphine Sulfate 2 mg Q30M PRN IV 05/19/24 12:15 Buspirone HCl 5 mg DAILY PO 05/20/24 10:00 05/20/24 11:45 5 MG Atorvastatin Calcium 20 mg HS PO 05/19/24 22:00 Olanzapine 5 mg DAILY PO 05/20/24 10:00 05/20/24 11:39 5 MG Amiodarone HCl 250 ml @ 16.667 mls/ hr Q15H IV 05/20/24 00:00 05/20/24 16:51 16.667 MLS/HR Lorazepam 1 mg ONCE PRN IV 05/19/24 21:30 Haloperidol Lactate 2.5 mg Q8HP PRN IM 05/19/24 21:30 05/19/24 23:00 2.5 MG Metoprolol Succinate 25 mg DAILY PO 05/21/24 10:00 Enoxaparin Sodium 40 mg Q12HR SC 05/20/24 22:00 objective General: the patient is well developed and nourished. No acute distress. MENTAL STATUS: Awake and alert. She may only oriented to herself SPEECH, LANGUAGE, HIGHER CORTICAL FUNCTION: She vocalizes, she does not understand or given history CRANIAL NERVES: Pupils are equal, round and reactive. EOMs full and conjugate. Facial sensation intact in all three divisions bilaterally. Mandibular strength intact. Facial muscles symmetrical and strength intact. SENSATION: Sensation to touch and pinprick is okay MOTOR: Normal tone in the upper and lower extremity. Normal muscle bulk. No fasciculations. No abnormal movements or posturing. The muscle strength feels normal in the arms, she moves the legs REFLEXES: Deep tendon reflexes normal and symmetrical. No pathological reflexes. CEREBELLAR/COORDINATION: Deferred GAIT/STATION: deferred. laboratory and microbiology Laboratory Tests 05/20/24 06:21 Test 05/20/24 06:21 Range/Units Serum Glucose 104 74-106 mg/dL Problem List Spells of mental status changes ? TIA ? Partial complex seizure ? Syncope secondary to arrhythmia Dementia Assessment/Plan Monitoring Supportive treatment Telemetry EEG MRI head Up to chair Physical therapy More recommendation per clinical course Follow up her doctors on discharge This medical document was created using an electronic medical record system with [email or web address] dictation system. Although this document has been carefully reviewed, there may still be some phonetic and typographical errors. These areas are purely typographical due to imperfections of the software programs, and do not reflect any compromise in the patient's medical care Prognosis poor Plan discussed with: Other MARCELINO LAKE MD May 20, 2024 19:40
[2024-05-20] MEDS: ENOXAPARIN SOD 40 MG/0.4 ML SYRINGE SC SCH (21:53)
--- NOTE | 2024-05-21 03:13 | DVHDS2 ---
Discharge Summary Date of Admission May 19, 2024 at 12:01 Date of Discharge: May 20, 2024 Admitting Diagnosis Altered mental status Wounds: Facial bruises; present at admission Labs/Diagnostic Data: Laboratory Results Test 05/20/24 06:21 05/19/24 08:18 White Blood Count 7.6 10^3/uL (4.4-10.8) Red Blood Count 4.00 10^6/uL (4.0-5.20) Hemoglobin 13.4 g/dL (12.2-16.2) Hematocrit 39.6 % (36.0-46.0) Mean Corpuscular Volume 99.0 fL (80.0-100.0) Mean Corpuscular Hemoglobin 33.5 pg (28.0-32.0) Mean Corpuscular Hemoglobin Concent 33.8 g/dL (32.0-36.0) Red Cell Distribution Width 13.6 % (11.8-14.3) Platelet Count 213 10^3/uL (140-450) Mean Platelet Volume 7.6 fL (6.9-10.8) Neutrophils (%) (Auto) 80.4 % (37.0-80.0) Lymphocytes (%) (Auto) 10.7 % (10.0-50.0) Monocytes (%) (Auto) 8.3 % (0.0-12.0) Eosinophils (%) (Auto) 0.2 % (0.0-7.0) Basophils (%) (Auto) 0.4 % (0.0-2.0) Neutrophils # (Auto) 6.1 10 ^3/uL (1.6-8.6) Lymphocytes # (Auto) 0.8 10 ^3/uL (0.4-5.4) Monocytes # (Auto) 0.6 10 ^3/uL (0-1.3) Eosinophils # (Auto) 0 10 ^3/uL (0-0.8) Basophils # (Auto) 0 10 ^3/uL (0-0.2) Nucleated Red Blood Cells 0.0 % Sodium Level 142 mmol/L (136-145) Potassium Level 3.3 mmol/L (3.5-5.1) Chloride Level 106 mmol/L (98-107) Carbon Dioxide Level 22 mmol/L (20-31) Anion Gap 14 (5-15) Blood Urea Nitrogen 10 mg/dL (9-23) Creatinine 0.79 mg/dL (0.550-1.02) Glomerular Filtration Rate Calc 75 mL/min (>90) BUN/Creatinine Ratio 12.7 (10.0-20.0) Serum Glucose 104 mg/dL (74-106) Calcium Level 10.5 mg/dL (8.7-10.4) Total Bilirubin 0.7 mg/dL (0.2-1.0) Aspartate Amino Transferase (AST) 32 U/L (13-40) Alanine Aminotransferase (ALT) 19 U/L (7-40) Alkaline Phosphatase 75 U/L (46-116) Total Protein 7.1 g/dL (5.7-8.2) Albumin 4.4 g/dL (3.2-4.8) Vitamin B12 Level 651 pg/mL (211-911) Folic Acid 41.18 ng/mL (>5.38) Thyroid Stimulating Hormone (TSH) 2.44 uIU/mL (0.55-4.78) Free Thyroxine (T4) Calculated 1.19 ng/dL (0.89-1.76) Troponin I High Sensitivity 5 ng/L (</=34) Other Laboratory Tests 05/20/24 06:21 Brief Hx & Hospital Course: An 83-year-old female patient with multiple comorbidities who presented to emergency department with altered mental status. #Acute metabolic/toxic encephalopathy in the setting of dementia; reviewed head CT and carotid arteries duplex ultrasound; neurology is following; fall and seizures precautions; differential diagnosis include TIA, partial complex seizures, syncope episodes secondary to arrhythmias; cardiology is following; one-to-one sitter; transferred to [facility] to continue management #Facial bruises most likely secondary to fall; reviewed head CT; fall and seizures precautions; transferred to [facility] to continue management #Dementia; suspected Alzheimer disease; oriented to self at baseline; neurology is following;; transferred to [facility] to continue management #New onset atrial fibrillation with rapid ventricular response; continue amiodarone infusion; continue anticoagulation with enoxaparin; telemetry; cardiology is following; reviewed echocardiogram; transferred to [facility] to continue management #LINNEA; most likely vasomotor nephropathy; avoid nephrotoxic agents; transferred to [facility] to continue management #Hypokalemia; most likely due to decreased oral intake; replace electrolytes as indicated; transferred to [facility] to continue management #Hypertensive heart disease with diastolic heart failure; not in exacerbation; reviewed echocardiogram; cardiology is following; continue antihypertensive medications as indicated; transferred to [facility] to continue management #Dyslipidemia; continue home statin; transferred to [facility] to continue management #Severe malnutrition; dietary consulted; transferred to [facility] to continue management Transferred to [facility] [place] to Room/Bed 541 to continue management. Late Entry. This medical document was created using an electronic medical record system with computerized dictation system. Although this document has been carefully reviewed, there might still be some phonetic and typographical errors. These areas are purely typographical due to imperfections of the software programs, and do not reflect any compromise in the patient's medical care. Consults/Reason for consult Neurology for altered mental status//cardiology for new onset AFib with RVR Condition at Discharge: Guarded Final Diagnosis/Problems List Acute metabolic/toxic encephalopathy presenting as altered mental status in the setting of dementia Secondary Diagnosis: As above Discharge Disposition: Acute Care Facility ([facility]) Discharge Instruct/Medications Diet: See Comment (Transferred to [facility] to continue management) Activity: See Comment (Transferred to [facility] to continue management) Follow Up/Referral: Transferred to [facility] to continue management Medications: Transferred to [facility] to continue management Discharge Statement: "Patient was advised to return to the ER or call 911 if any headaches, dizziness, shortness of breath, chest pain, abdominal pain, bleeding, fevers, or worsening of medical condition. Patient was counseled about treatment plan, medications, possible side effects, patientverbalized understanding. All questions were answered to the best of my ability. This discharge took greater then 30 minutes in planning, reviewing documentation, counseling the patient, and discussing with other team members." ASSESSMENT ASSESSMENT Assessment Date of Service: May 20, 2024 Billing Provider: CHONG GARCIA MD Common Visit Codes: 28121-WIR/OBS DISCH DAY >30min CHONG GARCIA MD May 21, 2024 03:13
[2024-05-21] MEDS ORDERED: METOPROLOL SUCCINATE XL 50 MG TAB PO SCH (10:00)
== END 2024-05-20 22:15 | disposition short-term general hospital (02) | DRG 308 ==
LOC: EDUNIT# 07:01 → EDBD 07:01 → ER 07:01 → TELE 12:01 → TELE-EAST 17:22
PROVIDERS: ADMIT Nurse Practitioner Family; ATTEND Internal Medicine
DX: I49.9 Cardiac arrhythmia, unspecified (principal); E43 Unspecified severe protein-calorie malnutrition; G92.8 Other toxic encephalopathy; N17.0 Acute kidney failure with tubular necrosis; G45.9 Transient cerebral ischemic attack, unspecified; G40.209 Localization-related (focal) (partial) symptomatic epilepsy and epileptic syndromes with complex partial seizures, not intractable, without status epilepticus; I50.30 Unspecified diastolic (congestive) heart failure; Z68.1 Body mass index [BMI] 19.9 or less, adult; I48.91 Unspecified atrial fibrillation; E78.5 Hyperlipidemia, unspecified; F02.80 Dementia in other diseases classified elsewhere, unspecified severity, without behavioral disturbance, psychotic disturbance, mood disturbance, and anxiety; E87.6 Hypokalemia; G30.9 Alzheimer's disease, unspecified; I11.0 Hypertensive heart disease with heart failure; S00.83XA Contusion of other part of head, initial encounter; M81.0 Age-related osteoporosis without current pathological fracture; Z79.01 Long term (current) use of anticoagulants; W18.39XA Other fall on same level, initial encounter; Y93.89 Activity, other specified; Y92.89 Other specified places as the place of occurrence of the external cause; Y99.8 Other external cause status; Z79.899 Other long term (current) drug therapy
CPT/HCPCS: 36415; 70450; 71045; 80048; 80053; 82607; 82746; 84439; 84443; 84484; 85025; 93306; 93886; 97163; 99291; G0378; J2003; J3470